=== PATIENT | male | born 1940 | race Caucasian/White ===

== ENCOUNTER → 2016-10-24 | Outpatient (CLI) | payer MEDICARE, OTHER ==
[~2016-10-24] MED LIST: ALBU8.5H INH; AMLO5TAB2 PO; ASPI-557 PO; BUDE0.5A6 AEROSOL; CETI-115 PO; CHOL200024 PO; DOXA4TAB3 PO; FINA5TAB30 PO; FISH1CAP2 PO; HYDR-4246 PO; OMEP40CA52 PO; PRAV40TA44 PO
--- NOTE | 2016-10-26 07:32 | ECHOF ---
ECHOCARDIOGRAM REPORT DATE OF PROCEDURE October 24, [address] Cristino Germain This is a two-dimensional echo with spectral Doppler, color-flow and M-mode. It was obtained in a patient with dyspnea on exertion. Left atrial dimension is normal. Left ventricle end-diastolic dimension is normal. Left ventricle wall thickness is at the upper limits of normal. LV systolic function is normal with ejection fraction of 69%. Right atrium is normal. Right ventricle is normal. Aortic root dimension is normal. Mitral valve is morphologically normal with trace of mitral regurgitation. Aortic valve is a trileaflet structure with no stenosis. Trace of aortic insufficiency is present. Tricuspid valve shows mild tricuspid regurgitation with normal estimated pulmonary artery systolic pressure of 23. Pulmonary valve shows mild pulmonary insufficiency. There is no pericardial effusion. IMPRESSION 1. Normal LV systolic function with ejection fraction of 69%. 2. Trace of mitral regurgitation. 3. Trace of aortic insufficiency. 4. Mild tricuspid regurgitation with normal estimated pulmonary artery systolic pressure of 23. 5. Mild pulmonary insufficiency. MTDD
== END ==
LOC: IMA 14:58
PROVIDERS: ATTEND Family Medicine
DX: I07.1 Rheumatic tricuspid insufficiency (principal); I37.1 Nonrheumatic pulmonary valve insufficiency; R06.09 Other forms of dyspnea
CPT/HCPCS: 93306